=== PATIENT | male | born 1950 | race Caucasian/White ===

== ENCOUNTER 2017-03-28 13:03 | Emergency (ER) | payer OTHER, MEDICARE ==
[~2017-03-28 13:03] MED LIST: ANTI25TA2 PO; ASPI81 PO; BACL10TA PO; CLON.5 PO; DARV PO; DILT120C9 PO; FIORTAB4 PO; MELO15TA2 PO; NITR0.4S SL; OMEP20CA5 PO; PRAV10 PO; STOO100C PO; TOPR25TA2 PO; TRAM100T19 PO; ZOCO40TA PO
[2017-03-28 13:07] VITALS: BP 150/100; PULSE 86; RESP 16; TEMP 97.6; O2SAT 96
== END 2017-03-28 13:30 | disposition left against medical advice (07) ==
LOC: NED 13:03
DX: Z53.21 Procedure and treatment not carried out due to patient leaving prior to being seen by health care provider (principal)
CPT/HCPCS: 99281

== ENCOUNTER 2017-05-16 03:15 | Emergency (ER) | payer OTHER, MEDICARE ==
[~2017-05-16] VITALS: Ht 180.3 cm; Wt 105.6 kg
[2017-05-16 03:20] VITALS: BP 155/86; PULSE 66; RESP 18; TEMP 97.6
[2017-05-16] MEDS ORDERED: DIPH25CA PO (03:54)
[2017-05-16] MEDS ORDERED: FAMO20TA2 PO (03:54)
[2017-05-16] MEDS ORDERED: DICY10CA12 PO (03:54)
[2017-05-16] MEDS ORDERED: METO1TAB9 PO (03:54)
[2017-05-16] MEDS ORDERED: ASPI81CH6 CHEW (03:54)
[2017-05-16] MEDS ORDERED: DOCU100C15 PO (03:54)
[2017-05-16] MEDS ORDERED: TRIA37.53 PO (03:54)
[2017-05-16] MEDS ORDERED: ALBU6.7H INH (03:54)
[2017-05-16] MEDS ORDERED: OMEP40CA2 PO (03:54)
[2017-05-16] MEDS ORDERED: SYMB80AE INH (03:54)
[2017-05-16] MEDS ORDERED: PRAV40TA2 PO (03:54)
[2017-05-16] MEDS ORDERED: FLUT50SP EACH NARE (03:54)
[2017-05-16] MEDS ORDERED: BUSP10TA PO (03:54)
[2017-05-16] MEDS ORDERED: NON-325T2 PO (03:54)
[2017-05-16] MEDS ORDERED: PRED20 PO (03:55)
[2017-05-16] MEDS ORDERED: predniSONE 20 MG TAB PO ONE (04:00)
--- NOTE | 2017-05-16 04:09 | PD ---
HPI Chief Complaint: Facial Pain or Swelling Time Seen by Provider: 03:48 Travel History International Travel<30 days: No Contact w/Intl Traveler<30days: No Traveled to known affect area: No History of Present Illness HPI The patient is a 67-year-old male that complains of facial swelling since 1:30 morning yesterday. Yesterday at 3:00 he took 25 Benadryl and then again at 11: 00 yesterday and finally at 7:30 PM yesterday. This is approximately his third episode of facial swelling since . He is being worked up by the [facility] for the cause of his allergy, looking for allergens. He has not heard back from them yet. He denies any wheezing or shortness of breath. He denies any syncopal or near syncopal spells. He denies any chest pain or fever. He has not had a cough. PFSH Past Medical History Arthritis: Yes Anxiety: Yes Heart Rhythm Problems: No Cancer: Yes (ORAL) Cardiac Catheterization: Yes (in 1999) Cardiovascular Problems: Yes High Cholesterol: Yes Congestive Heart Failure: No COPD: Yes Cerebrovascular Accident: Yes ( told him possible TIAs) Diabetes: No Diminished Hearing: No Diverticulitis: Yes Hepatitis: Yes (Hep A) Hypertension: Yes Respiratory: Yes (SLEEP APNEA, Emphysema, Black lung) Immunizations Current: No Sleep Apnea: Yes Influenza Vaccination: Yes ?: Not Past Surgical History Abdominal Surgery: Yes (BILAT HERNIA REPAIR) Appendectomy: Yes Coronary Artery Bypass Graft: No 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) Social History Alcohol Use: No Tobacco Use: No Substance Use: No Allergies-Medications (Allergen,Severity, Reaction): Coded Allergies: penicillin G (Unverified Allergy, Mild, 11/01/16) Reported Meds & Prescriptions Reported Meds & Active Scripts Active Prednisone 20 Mg Tab 20 Mg PO BID Reported Fluticasone Nasal [place] 50 Mcg/Act Naspr 50 Mcg EACH NARE BID 50 mcg/spray Symbicort Inh (Budesonide/Formoterol Fumarate) 80-4.5 Mcg/Act Aero 2 Puff INH Q12HR Proventil Hfa 6.7 GM Inh (Albuterol Sulfate) 90 Mcg/Act Aer 2 Puff INH Q4-6H PRN Buspirone (Buspirone HCl) 10 Mg Tab 10 Mg PO BID Aspirin Low Dose (Aspirin) 81 Mg Chew 81 Mg CHEW DAILY Pravastatin 40 Mg Tab 40 Mg PO DAILY Omeprazole 40 Mg Cap 40 Mg PO DAILY Non-Aspirin (Acetaminophen) 325 Mg Tab 325 Mg PO BID PRN Docusate Sodium 100 Mg Cap 100 Mg PO BID Metoprolol Succinate ER 24 HR (Metoprolol Succinate) 50 Mg Tab 50 Mg PO DAILY Triamterene-Hydrochlorothiazide 37.5-25 Mg Cap 1 Cap PO DAILY Diphenhydramine (Diphenhydramine HCl) 25 Mg Cap 25 Mg PO TID PRN Famotidine 20 Mg Tab 20 Mg PO BID Dicyclomine (Dicyclomine HCl) 10 Mg Cap 10 Mg PO TID Antivert (Meclizine HCl) 25 Mg Tab 25 Mg PO DAILY Diltiazem Hcl Er (Diltiazem HCl) 120 Mg Tab 120 Mg PO DAILY Mobic (Meloxicam) 15 Mg Tab 15 Mg PO DAILY Tramadol HCl ER (Tramadol HCl) 100 Mg Tab 100 Mg PO Q4-6HPRN Lioresal 10 Mg Tab (Baclofen) 10 Mg Tab 10 Mg PO BID Pravastatin Sodium (Pravastatin Sod) 10 Mg Tab 40 Mg PO HS Darvocet-N 100 (Propoxyphene Napsylate/Acetam) Tab 1 Tab PO BID FOR PAIN Nitrostat (Nitroglycerin) 0.4 Mg Subl 0.4 Mg SL PRN 1 TAB SL EVERY 5 MINS X 3 PRN CHEST PAIN Colace (Docusate Sodium) 100 Mg Cap 100 Mg PO BID Prilosec 20 mg (Omeprazole) 20 Mg Capcr 20 Mg PO TID Klonopin (Clonazepam) 0.5 Mg Tab 1.5 Mg PO HSPRN Zocor 40 mg (Simvastatin) 40 Mg Tab 20 Mg PO HS Toprol Xl (Metoprolol Succinate) 25 Mg Tabcr 37.5 Mg PO DAILY Fioricet (Acetaminophen/Butalbital/Caffeine) Tab 1 Tab PO Q4HPRN FOR HEADACHE Aspirin 81 Mg Tab 81 Mg PO DAILY Review of Systems Except as stated in HPI: all other systems reviewed are Neg Physical Exam Narrative GENERAL: Well-nourished, well-developed patient in no apparent distress other than the facial swelling. His vital signs show temperature 97.6 and blood pressure 155/86 but otherwise normal. SKIN: Focused skin assessment warm/dry. HEAD: Normocephalic. EYES: No scleral icterus. No injection or drainage. NECK: Supple, trachea midline. No JVD or lymphadenopathy. CARDIOVASCULAR: Regular rate and rhythm without murmurs, gallops, or rubs. RESPIRATORY: Breath sounds equal bilaterally. No accessory muscle use. Lungs clear to auscultation bilaterally, specifically there is no wheezing heard. GASTROINTESTINAL: Abdomen soft, non-tender, nondistended. MUSCULOSKELETAL: No cyanosis, or edema. BACK: Nontender without obvious deformity. No CVA tenderness. ENT: The patient was generalized swelling which is mild. There is no areas of heavy swelling such as one would expect with angioedema. There is minimal lip swelling and slight swelling inside the mouth. Data Data Last Documented VS Vital Signs Date Time Temp Pulse Resp B/P (MAP) Pulse Ox O2 Delivery O2 Flow Rate FiO2 05/16/17 03:36 18 05/16/17 03:20 97.6 66 155/86 (109) Orders Orders Prednisone (Deltasone) (05/16/17 04:00) MDM Medical Decision Making Medical Screen Exam Complete: Yes Emergency Medical Condition: Yes Medical Record Reviewed: Yes Differential Diagnosis Allergic reaction, angioedema, cellulitis-unlikely Narrative Course The patient likely has allergic reaction. This does not appear as angioedema. Plan: The patient will be given a tapered course of prednisone, 20 mg twice daily for 3 days followed by 20 mg once daily for 3 days. [facility]. He may actually need to see an credit front office developer through the [facility]. Diagnosis Primary Impression: Allergic reaction Additional Instructions: The prednisone is taken one tablet twice a day for 3 days followed by one tablet once daily for 3 days. Follow-up with your credit front office developer when you get back to [place]. Med/Other Pt SpecificInfo: Prescription(s) given Scripts Prednisone (Prednisone) 20 Mg Tab 20 MG PO BID for X 5 days than daily X 5 days, #15 TAB 0 Refills Prov: Homer Celis MD 05/16/17 Disposition: 01 DISCHARGE HOME Condition: Stable Homer Celis MD May 16, 2017 04:09
[2017-05-16 04:13] VITALS: BP 133/90; PULSE 68; RESP 18; O2SAT 98
== END 2017-05-16 04:30 | disposition home or self-care (01) ==
LOC: PHED 03:15
DX: T78.40XA Allergy, unspecified, initial encounter (principal); R22.0 Localized swelling, mass and lump, head; I10 Essential (primary) hypertension; E78.00 Pure hypercholesterolemia, unspecified; J44.9 Chronic obstructive pulmonary disease, unspecified; F41.9 Anxiety disorder, unspecified; Z85.819 Personal history of malignant neoplasm of unspecified site of lip, oral cavity, and pharynx; Z86.73 Personal history of transient ischemic attack (TIA), and cerebral infarction without residual deficits; Z88.0 Allergy status to penicillin; Z79.82 Long term (current) use of aspirin; Z79.899 Other long term (current) drug therapy
CPT/HCPCS: 99283; J7512